=== PATIENT | female | born 1965 | race American Indian/Alaskan Native ===

== ENCOUNTER 2017-03-13 10:10 | Inpatient (IN) | payer OTHER ==
[2017-03-13 11:16] LABS: Bilirubin,Urine NEG (Negative); Blood,Urine NEG (Negative); Color,Urine Yellow (Yellow); Mucus,Urine 3+ /HPF; Nitrite,Urine NEG (Negative); Protein,Urine <15 mg/dL mg/dL (Negative); Urobilinogen,Urine < 2.0 mg/dL (<2.0)
[2017-03-13 11:28] LABS: Basophils % (Auto) 0.4 % (0.0-1.8); Eosinophils % (Auto) 0.7 % (0.0-4.3); Hematocrit 43.9 % (30.3-42.9); Hemoglobin 14.2 gm/dl (10.1-14.3); Lymphocytes # (Auto) 1.3 K/mm3 (1.2-5.4); Lymphocytes % (Auto) 27.7 % (13.4-35.0); Mean Corpuscular HGB Conc 32 % (30-34); Mean Corpuscular Hemoglobin 29 pg (28-32); Mean Corpuscular Volume 88 fl (79-97); Monocytes # (Auto) 0.5 K/mm3 (0.0-0.8); Platelet Count 204 K/mm3 (140-440); Red Blood Count 4.97 M/mm3 (3.65-5.03); Red Cell Distribution Width 14.9 % (13.2-15.2)
[2017-03-13 11:28] LABS: Amphetamine Screen,Urine PRESUMPTIVE NEGATIVE; Benzodiazepines Screen,Urine PRESUMPTIVE NEGATIVE; Cannabinoid Screen,Urine PRESUMPTIVE NEGATIVE; Cocaine Screen,Urine PRESUMPTIVE NEGATIVE; Methadone Screen,Urine PRESUMPTIVE NEGATIVE; Opiate Screen,Urine PRESUMPTIVE NEGATIVE
[2017-03-13] MEDS ORDERED: NACL 0.9% 1000 ML 1,000 ML IV ONE (11:28)
--- NOTE | 2017-03-13 11:29 | Emergency Department Report ---
ED General Adult HPI - General Chief complaint: Syncope Stated complaint: UNRESPONSIVE Time Seen by Provider: 03/13/17 11:17 Source: family, EMS (ems notes not available at time of chart dictation), RN notes reviewed Mode of arrival: Stretcher Limitations: Altered Mental Status - History of Present Illness Initial comments: This is a 51-year-old female who was previously unknown to this provider. Past medical history includes hypertension, depression, family does report that patient has a distant history of suicide attempt. Patient is accompanied by her daughter, sister, brother. As per verbal report from the patient's family, patient has been "depressed" for the past 4 months. They also indicate that the patient has been depressed about the holidays. They indicate the patient was walking and talking last night. Patient's daughter also indicates that the patient was walking and talking this morning. Patient's daughter further indicates the patient was "fine", and then "laid down on the floor." She specifically denies syncope, an explosive loss of consciousness. There is concern about overdose, as an empty bottle of Effexor was found. Patient's family indicates the patient gets her prescriptions from [facility] on local [address]. The patient is nonverbal, and she can therefore not describe exacerbating or relieving factors, or radiation. -: This morning Consistency: constant Improves with: none Worsens with: none Associated Symptoms: confusion - Related Data Home Medications Medication Instructions Recorded Confirmed Last Taken Venlafaxine HCl [Effexor Xr] 75 mg PO QDAY 03/13/17 03/13/17 Unknown Allergies Allergy/AdvReac Type Severity Reaction Status Date / Time No Known Allergies Allergy Verified 03/13/17 11:54 ED Review of Systems ROS: Stated complaint: UNRESPONSIVE Other details as noted in HPI Comment: Unobtainable due to pts medical conditions ED Past Medical Hx - Past Medical History Hx Hypertension: Yes - Social History Smoking Status: Never Smoker Substance Use Type: None - Medications Home Medications: Home Medications Medication Instructions Recorded Confirmed Last Taken Type Venlafaxine HCl [Effexor Xr] 75 mg PO QDAY 03/13/17 03/13/17 Unknown History ED Physical Exam - General Limitations: Altered Mental Status General appearance: in no apparent distress - Head Head exam: Present: atraumatic, normocephalic - Eye Eye exam: Present: PERRL, other (when the patient's eyelids are elevated, the patient appears to close them tightly. When eyelids are open, eyes noted to be moving in all directions. There is no nystagmus.) - ENT ENT exam: Present: normal exam, TM's normal bilaterally, normal external ear exam, other (there is no stridor or dysphonia) - Neck Neck exam: Present: normal inspection. Absent: tenderness, meningismus - Respiratory Respiratory exam: Present: normal lung sounds bilaterally. Absent: respiratory distress - Cardiovascular Cardiovascular Exam: Present: regular rate, normal rhythm, normal heart sounds. Absent: bradycardia, tachycardia, irregular rhythm, systolic murmur, diastolic murmur, rubs, gallop - GI/Abdominal GI/Abdominal exam: Present: soft, normal bowel sounds. Absent: distended, tenderness, guarding, rebound, rigid, pulsatile mass - Rectal Rectal exam: Present: normal inspection, normal rectal tone, other (no gross blood on rectal examination, escorted by nurse Jese) - External exam: Present: normal external exam, other (escorted by nurse Jese during external exam) - Extremities Exam Extremities exam: Present: normal inspection, normal capillary refill. Absent: tenderness, pedal edema, joint swelling, calf tenderness - Back Exam Back exam: Present: normal inspection. Absent: tenderness, CVA tenderness (R), paraspinal tenderness, vertebral tenderness - Neurological Exam Neurological exam: Present: altered, other (the patient is nonverbal. Patient grimaces in response to sternal stimuli. Prior to my arrival, patient heard yelling from the room. Patient is closing her eyes when we attempt to examine him. She is not speaking. Unable to assess lites touch, proprioception, or cranial nerves except as documented.) - Psychiatric Psychiatric exam: Present: other (the patient is nonverbal) - Skin Skin exam: Present: warm, dry, intact, normal color. Absent: rash ED Course Vital Signs 03/13/17 03/13/17 03/13/17 10:12 10:46 10:51 Temperature 98.8 F Pulse Rate 82 76 87 Respiratory 18 Rate Blood Pressure 171/87 171/87 O2 Sat by Pulse 100 100 100 Oximetry 03/13/17 03/13/17 03/13/17 11:00 11:16 11:30 Temperature Pulse Rate 88 88 82 Respiratory 23 23 20 Rate Blood Pressure 172/92 170/93 170/93 O2 Sat by Pulse 100 100 100 Oximetry 03/13/17 03/13/17 03/13/17 11:46 12:00 12:16 Temperature Pulse Rate 80 77 81 Respiratory 19 18 21 Rate Blood Pressure 154/86 154/86 159/82 O2 Sat by Pulse 100 100 100 Oximetry 03/13/17 03/13/17 03/13/17 12:30 12:46 14:27 Temperature Pulse Rate 91 H Respiratory 13 12 17 Rate Blood Pressure 159/82 172/91 172/91 O2 Sat by Pulse 100 98 100 Oximetry 03/13/17 03/13/17 03/13/17 14:30 14:45 15:00 Temperature Pulse Rate 63 67 66 Respiratory 13 14 15 Rate Blood Pressure 150/85 150/85 150/81 O2 Sat by Pulse 100 100 100 Oximetry 03/13/17 03/13/17 03/13/17 15:15 15:30 16:01 Temperature Pulse Rate 63 66 64 Respiratory 13 19 16 Rate Blood Pressure 153/92 151/71 159/128 O2 Sat by Pulse 100 100 100 Oximetry 03/13/17 03/13/17 16:30 17:00 Temperature Pulse Rate 63 64 Respiratory 16 15 Rate Blood Pressure 164/84 152/80 O2 Sat by Pulse 99 99 Oximetry - Reevaluation(s) Reevaluation #1: 03/13/17 11:39 Differential diagnosis, including not limited to: Stroke, bleed, conversion disorder, seizure, electrolyte derangement, pneumonia, urinary tract infection, catatonia, overdose Assessment and plan: 51-year-old female with undifferentiated altered mental status, extensive psychiatric history, highly favor psychiatric etiology. However, we will obtain CT scan of the brain, CT scan of the head and neck with contrast to exclude posterior circulation thrombosis. Based on history, I favor overdose with possible conversion disorder, the patient currently currently has a GCS of 3 but is protecting her airway, saturating well with no stridor or dysphonia, and does not require intubation. The family has given verbal consent for CT scan with IV contrast after risks, benefits, alternatives were discussed. She is placed on a 1013. Serum toxicology studies, EKG pending. Nursing staff is going to contact the patient' s pharmacy in an attempt to obtain a full medication list. Nursing staff will then contact [place] [facility] to obtain recommendations. If and when the patient overdosed is unknown, and given her current GCS she is not a candidate For charcoal therapy. We will also obtain x-ray of the chest, abdomen, pelvis to exclude bezoar Reevaluation #2: 03/13/17 11:45 Case discussed with consulting neurology, Dr. Joel Odell, and he agrees. He also agrees with the current plan. I will contact him once angiogram has resulted. Of note, patient heard to be yelling outside her room prior to my personal evaluation. Reevaluation #3: 03/13/17 12:24 Nursing staff has contacted patient's pharmacy, only prescription she is currently on is Effexor. Of note, patient had a prescription filled for 90 tablets on February 26, vital is now empty. Nursing staff has also contacted the [facility] Control [facility], recommendations are as follows: Call placed to [place] poison control. Updated on pt condition. Recommendations to monitor for at least 12 hours. If QRS is prolonged >110 consider bicarb treatment. Monitor for serotonin syndrone (Hyperthermia, Hyper-reflexia, seizures). MD made aware. Patient does not have hyperreflexia, there is no clonus, there is no hypothermia. 03/13/17 12:25 Reevaluation #4: 03/13/17 12:46 I am informed by nursing staff that patient is now talking. I am further informed by nursing staff that the pharmacy contacted us again, and amended the Effexor prescription, and indicated that the patient only got 5 tablets, and not 90. Collateral information is obtained by speaking to prescribing pharmacist, Caitlin Bucio he is quite certain that the patient was dispensed only 5 tablets and not 85 tablets. The patient is quite sure that she is not homicidal or suicidal and has tried to overdose on anything. I have also recontacted the consulting neurologist, Dr. Odell, and informed him that the patient is now awake, alert, lucid, oriented, has a GCS of 15, with an NIH score of 0. We will still proceed with the CT scan of the head and neck, and the medical recommendation would still be the same, to admit patient to the hospital for TIA/arrhythmia workup. This was described and discussed with the patient's family, mother and patient all of whom verbalize understanding. ; 03/13/17 13:17 Reevaluation #5: 03/13/17 13:34 Patient continues to be awake, alert, oriented and conversant. She is adamant that she is not homicidal or suicidal, and she is adamant that she does not try to overdose on anything. Objective toxicology studies are negative and unremarkable. Based on this information, she does not meet criteria for 1013 or involuntary hold. Therefore , 1013 is discontinued. Patient is also seen in consultation with the crisis team, who independently agrees. - Consultations Consultation #1: 03/13/17 14:15 CT scan of the brain is negative. CT angiogram head and neck negative. Neurologic examination remains unremarkable and unchanged. Patient complaining mild headache. Ketorolac is ordered. Hospital physician is paced to arrange admission. Dr. Ortiz, the hospital physician, accepted the patient to the medical service. 03/13/17 15:07 ED Medical Decision Making - Lab Data Result diagrams: 03/13/17 11:02 03/13/17 11:02 Vital Signs 03/13/17 03/13/17 10:12 10:51 Temperature 98.8 F Pulse Rate 82 87 Blood Pressure 171/87 O2 Sat by Pulse 100 100 Oximetry Lab Results 03/13/17 03/13/17 03/13/17 Range/Units 10:44 10:44 11:02 WBC 4.6 (4.5-11.0) K/mm3 RBC 4.97 (3.65-5.03) M/mm3 Hgb 14.2 (10.1-14.3) gm/dl Hct 43.9 H (30.3-42.9) % MCV 88 (79-97) fl MCH 29 (28-32) pg MCHC 32 (30-34) % RDW 14.9 (13.2-15.2) % Plt Count 204 (140-440) K/mm3 Lymph % (Auto) 27.7 (13.4-35.0) % Hall % (Auto) 10.0 H (0.0-7.3) % Eos % (Auto) 0.7 (0.0-4.3) % Baso % (Auto) 0.4 (0.0-1.8) % Lymph # 1.3 (1.2-5.4) K/mm3 Hall # 0.5 (0.0-0.8) K/mm3 Eos # 0.0 (0.0-0.4) K/mm3 Baso # 0.0 (0.0-0.1) K/mm3 Seg Neutrophils % 61.2 (40.0-70.0) % Seg Neutrophils # 2.8 (1.8-7.7) K/mm3 POC Glucose (70-105) Urine Color Yellow (Yellow) Urine Turbidity Clear (Clear) Urine pH 5.0 (5.0-7.0) Ur Specific [place] 1.023 (1.003-1.030) Urine Protein <15 mg/dl (Negative) mg/dL Urine Glucose (UA) Neg (Negative) mg/dL Urine Ketones Neg (Negative) mg/dL Urine Blood Neg (Negative) Urine Nitrite Neg (Negative) Urine Bilirubin Neg (Negative) Urine Urobilinogen < 2.0 (<2.0) mg/dL Ur Leukocyte Esterase Sm (Negative) Urine WBC (Auto) 1.0 (0.0-6.0) /HPF Urine RBC (Auto) 2.0 (0.0-6.0) /HPF U Epithel Cells (Auto) 2.0 (0-13.0) /HPF Urine Mucus 3+ /HPF Urine Opiates Screen Presumptive negative Urine Methadone Screen Presumptive negative Ur Barbiturates Screen Presumptive negative Ur Phencyclidine Scrn Presumptive negative Ur Amphetamines Screen Presumptive negative U Benzodiazepines Scrn Presumptive negative Urine Cocaine Screen Presumptive negative U Marijuana (THC) Screen Presumptive negative Drugs of Abuse Note Disclamer 03/13/17 Range/Units 11:07 WBC (4.5-11.0) K/mm3 RBC (3.65-5.03) M/mm3 Hgb (10.1-14.3) gm/dl Hct (30.3-42.9) % MCV (79-97) fl MCH (28-32) pg MCHC (30-34) % RDW (13.2-15.2) % Plt Count (140-440) K/mm3 Lymph % (Auto) (13.4-35.0) % Hall % (Auto) (0.0-7.3) % Eos % (Auto) (0.0-4.3) % Baso % (Auto) (0.0-1.8) % Lymph # (1.2-5.4) K/mm3 Hall # (0.0-0.8) K/mm3 Eos # (0.0-0.4) K/mm3 Baso # (0.0-0.1) K/mm3 Seg Neutrophils % (40.0-70.0) % Seg Neutrophils # (1.8-7.7) K/mm3 POC Glucose 72 (70-105) Urine Color (Yellow) Urine Turbidity (Clear) Urine pH (5.0-7.0) Ur Specific [place] (1.003-1.030) Urine Protein (Negative) mg/dL Urine Glucose (UA) (Negative) mg/dL Urine Ketones (Negative) mg/dL Urine Blood (Negative) Urine Nitrite (Negative) Urine Bilirubin (Negative) Urine Urobilinogen (<2.0) mg/dL Ur Leukocyte Esterase (Negative) Urine WBC (Auto) (0.0-6.0) /HPF Urine RBC (Auto) (0.0-6.0) /HPF U Epithel Cells (Auto) (0-13.0) /HPF Urine Mucus /HPF Urine Opiates Screen Urine Methadone Screen Ur Barbiturates Screen Ur Phencyclidine Scrn Ur Amphetamines Screen U Benzodiazepines Scrn Urine Cocaine Screen U Marijuana (THC) Screen Drugs of Abuse Note - EKG Data -: EKG Interpreted by Me EKG shows normal: sinus rhythm Rate: normal - Radiology Data Radiology results: image reviewed Critical care attestation.: If time is entered above; I have spent that time in minutes in the direct care of this critically ill patient, excluding procedure time. ED Disposition Clinical Impression: Unresponsive episode Disposition: DC-09 OP ADMIT IP TO THIS HOSP Is pt being admited?: Yes Does the pt Need Aspirin: Yes Condition: Stable Referrals: PRIMARY CARE, [Primary Care Provider] - 3-5 Days
[2017-03-13 11:42] LABS: Alanine Aminotransferase 11 units/L (7-56); Albumin 4.1 g/dL (3.9-5); BUN/Creatinine Ratio 15; Blood Urea Nitrogen 9 mg/dL (7-17); Calcium 9.3 mg/dL (8.4-10.2); Hemolysis Index 7
[2017-03-13] MEDS ORDERED: NACL ONE (12:19)
--- NOTE | 2017-03-13 12:19 | XRay Report ---
ABDOMINAL SERIES: History: pain. Erect chest film shows no acute or significant changes involving the heart or lung [place]. There is no evidence of free air beneath the diaphragms. The gas pattern within the abdomen is unremarkable. There is no evidence of bowel dilatation, significant air-fluid levels, or masses. Organ shadows are unremarkable. IMPRESSION: Abdominal series within normal limits.
--- NOTE | 2017-03-13 14:07 | Cat Scan Report ---
CT HEAD WITHOUT CONTRAST: HISTORY: Altered mental status. TECHNIQUE: Sequential 2.5mm CT images. COMPARISON: none. FINDINGS: Cerebral Parenchyma: Within normal limits. Cerebellum: Within normal limits. Brainstem: Within normal limits. Ventricles: Normal. Sella: Normal. Extra-axial spaces: Normal. Basal Cisterns: Normal. Intracranial Hemorrhage: None. Midline Shift: None. Calvarium: Normal. Sinuses: Normal. Mastoid Air Cells: Normal. Visualized Orbits: Normal. IMPRESSION: Cranial CT scan within normal limits.
--- NOTE | 2017-03-13 14:08 | Cat Scan Report ---
CTA NECK: HISTORY: Altered mental status, CVA.. TECHNIQUE: Helical CT following IV contrast. Sagittal and coronal reformatted images. 3D volume rendering technique. Stenosis was calculated using NASCET criteria. FINDINGS: The visualized aortic arch, innominate artery and proximal bilateral subclavian arteries are widely patent with less than 20% stenosis. Within the right carotid system: There is no evidence for significant atherosclerotic disease. There is less than 20% stenosis. Within the left carotid system: There is no evidence for significant atherosclerotic disease. There is less than 20% stenosis. The cervical vertebral arteries are patent with less than 20% stenosis. IMPRESSION: Unremarkable CTA of the neck.
--- NOTE | 2017-03-13 14:10 | Cat Scan Report ---
CTA HEAD: HISTORY: Altered mental status, CVA. TECHNIQUE: Helical CT images after IV contrast with 0.625mm reformations. Sagittal and coronal reformats. Rotational MIP images. 3D volume rendering technique. FINDINGS: The arterial structures of the anterior and posterior circulations are patent throughout. There is less than 20% stenosis throughout. No evidence for stenosis, occlusion or aneurysm. IMPRESSION: Unremarkable CTA head.
[2017-03-13] MEDS ORDERED: TORADOL IV ONE (14:19)
[2017-03-13] MEDS ORDERED: BABY ASPIRIN PO ONE (14:20)
--- NOTE | 2017-03-13 16:01 | History and Physical Report ---
History of Present Illness Chief complaint: I passed out History of present illness: 51 YO Female with HTN, Obesity, Major Depression with Suicide Attempt presents to ED for evaluation. Pt states that she was in her usual state of health until this morning. Pt states that she was find and subsequently loss consciousness, and regained consciousness upon arriving to the hospital. Pt family raise concern for attempted overdose, due to an empty effexor pill bottle that was found near the patient. Pt denies SI/HI or plan. No reports of fever, chills, CP , Palpitations, loss of bowel/bladder continence, leg swelling, calf pain, prolonged immobility/travel, individual/family history of DVT/PE. Pt seen and evaluated in ED and admitted for unconscious state, and Major depression. Teleneurology consulted in ED and recommended MRI/MRA, Echo. Past History Past Medical History: hypertension, other (obesity, depression) Past Surgical History: No surgical history, Other (reviewed) Social history: , lives with family. denies: smoking, alcohol abuse, prescription drug abuse Family history: hypertension Medications and Allergies Allergies Allergy/AdvReac Type Severity Reaction Status Date / Time No Known Allergies Allergy Verified 03/13/17 11:54 Home Medications Medication Instructions Recorded Confirmed Last Taken Type Venlafaxine HCl [Effexor Xr] 75 mg PO QDAY 03/13/17 03/13/17 Unknown History Review of Systems Constitutional: no weight loss, no weight gain, no fever, no chills Ears, nose, mouth and throat: no ear pain, no ear discharge, no tinnitis, no decreased hearing Breasts: no change in shape, no swelling, no mass Cardiovascular: syncope, no chest pain, no orthopnea, no palpitations, no rapid/ irregular heart beat, no edema Respiratory: no cough, no cough with sputum, no excessive sputum, no hemoptysis , no shortness of breath Gastrointestinal: no abdominal pain, no nausea, no vomiting, no diarrhea, no constipation Genitourinary Female: no dysmenorrhea, no pelvic pain, no flank pain, no menorrhagia, no dysuria, no urinary frequency Rectal: no pain, no incontinence, no bleeding Musculoskeletal: no neck stiffness, no neck pain, no shooting arm pain, no arm numbness/tingling, no low back pain, no shooting leg pain, no leg numbness/ tingling Integumentary: no rash, no pruritis, no redness, no sores, no wounds Neurological: no transient paralysis, no paralysis, no weakness, no parathesias , no numbness, no tingling, no seizures, no syncope, no convulsions, no change in speech Psychiatric: anxiety, depression, no memory loss, no change in sleep habits, no sleep disturbances Endocrine: no cold intolerance, no heat intolerance, no polyphagia, no excessive thirst, no polydipsia Hematologic/Lymphatic: no easy bruising, no easy bleeding Allergic/Immunologic: no urticaria, no allergic rhinitis, no wheezing Exam - Constitutional Vitals: Temp Pulse Resp BP Pulse Ox 98.8 F 66 19 151/71 100 03/13/17 10:51 03/13/17 15:30 03/13/17 15:30 03/13/17 15:30 03/13/17 15:30 General appearance: Present: no acute distress, well-nourished - EENT Eyes: Present: PERRL ENT: hearing intact, clear oral mucosa - Neck Neck: Present: supple, normal ROM - Respiratory Respiratory effort: normal Respiratory: bilateral: CTA - Cardiovascular Heart Sounds: Present: S1 & S2. Absent: rub, click - Extremities Extremities: pulses symmetrical, No edema Peripheral Pulses: within normal limits - Abdominal General gastrointestinal: Present: soft, non-tender, non-distended, normal bowel sounds Female genitourinary: Present: normal - Integumentary Integumentary: Present: clear, warm, dry - Musculoskeletal Musculoskeletal: gait normal, strength equal bilaterally - Psychiatric Psychiatric: appropriate mood/affect, intact judgment & insight - Neurologic Neurologic: CNII-XII intact, moves all extremities Results - Labs CBC & Chem 7: 03/13/17 11:02 03/13/17 11:02 Labs: Abnormal lab results 03/13/17 03/13/17 03/13/17 Range/Units 11:02 11:02 11:15 Hct 43.9 H (30.3-42.9) % [place] % (Auto) 10.0 H (0.0-7.3) % Creatinine 0.6 L (0.7-1.2) mg/dL Salicylates < 0.3 L (2.8-20.0) mg/dL Assessment and Plan - Patient Problems (1) Unconscious state Current Visit: Yes Status: Acute Plan to address problem: Teleneurology consulted: MRI/MRA, Echo, Carotid doppler, neuro checks, (2) Accelerated hypertension Current Visit: Yes Status: Acute Plan to address problem: monitor bp q shift, continue medical management, IV hydralazine for systolic above 155. (3) Obesity Current Visit: Yes Status: Acute Qualifiers: Body mass index: BMI 38.0-38.9 Plan to address problem: balanced diet, increased physical activity, (4) DVT prophylaxis Current Visit: Yes Status: Acute
[2017-03-13] MEDS ORDERED: TYLENOL PO PRN ×2 (18:50)
[2017-03-13] MEDS ORDERED: SODIUM CHLORIDE FLUSH SYRINGE 10 ML IV PRN (18:50)
[2017-03-13] MEDS ORDERED: ZOFRAN IV PRN ×2 (18:50)
[2017-03-13] MEDS ORDERED: PROVENTIL IH PRN (18:50)
[2017-03-13] MEDS ORDERED: PHENERGAN PR PRN (18:50)
[2017-03-14 04:41] LABS: Chol/HDL Ratio 2.83 %
[2017-03-14 07:43] VITALS: BP 158/86
[2017-03-14] MEDS ORDERED: EFFEXOR XR PO SCH (10:00)
--- NOTE | 2017-03-14 11:52 | Magnetic Resonance Report ---
MRI of the brain without contrast. History: Stroke. Procedure: Routine brain protocol. Findings: The posterior fossa is normal. The ventricles are normal in size and contour. There is no restricted diffusion. The rojas-white matter junction is normal. There are no masses or extra-axial collections. The pituitary gland is normal. The visualized extracranial structures are normal. Impression: Negative study.
--- NOTE | 2017-03-14 11:53 | Magnetic Resonance Report ---
MRA of the lummi of [place]. History: Stroke. Procedure: 3-D [id number] technique. Findings: There are no significant stenoses within the major cranial vessels. There is no evidence of aneurysm or AVM. The posterior circulation is unremarkable. Impression: Normal study.
--- NOTE | 2017-03-14 13:23 | Consultation ---
History of Present Illness Consult date: 03/14/17 History of present illness: went over the MRI / MRA these are normal and the ECHO this is really unremarkable suspect TIA she can be discharged I will follow up in the office reviewed the ED notes extensively Past History Past Medical History: hypertension, other (obesity, depression) Past Surgical History: No surgical history, Other (reviewed) Social history: , lives with family. denies: smoking, alcohol abuse, prescription drug abuse Family history: hypertension Medications and Allergies Allergies Allergy/AdvReac Type Severity Reaction Status Date / Time No Known Allergies Allergy Verified 03/13/17 11:54 Home Medications Medication Instructions Recorded Confirmed Last Taken Type Venlafaxine HCl [Effexor Xr] 75 mg PO QDAY 03/13/17 03/13/17 Unknown History Active Meds: Active Medications Acetaminophen (Tylenol) 650 mg PO Q4H PRN PRN Reason: Pain MILD(1-3)/Fever >100.5/ALLEN Acetaminophen (Tylenol) 650 mg PO Q4H PRN PRN Reason: Pain, Mild (1-3) Albuterol (Proventil) 2.5 mg IH Q4HRT PRN PRN Reason: Shortness Of Breath Ondansetron HCl (Zofran) 4 mg IV Q8H PRN PRN Reason: N/V unrelieved by Reglan Ondansetron HCl (Zofran) 4 mg IV Q8H PRN PRN Reason: N/V unrelieved by Reglan Promethazine HCl (Phenergan) 25 mg MA Q6H PRN PRN Reason: Nausea And Vomiting Sodium Chloride (Sodium Chloride Flush Syringe 10 Ml) 10 ml IV PRN PRN PRN Reason: LINE FLUSH Physical Examination - Vital Signs Vital Signs: Vital Signs Pulse Pulse Ox 82 100 03/13/17 10:12 03/13/17 10:12 Results - Laboratory Findings CBC and BMP: 03/13/17 11:02 03/13/17 11:02 Abnormal Lab Findings: Abnormal Labs 03/13/17 03/13/17 03/13/17 11:02 11:02 11:15 Hct 43.9 H [place] % (Auto) 10.0 H Creatinine 0.6 L Salicylates < 0.3 L
--- NOTE | 2017-03-14 14:35 | Discharge Summary ---
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 Notified:: awaiting call back 03/13/17 18:50 Occupational Therapy Evaluate and Treat [CONS] Routine Comment: Reason For Exam: Neuro deficits Physical Therapy Evaluation and Treat [CONS] Routine Comment: Reason For Exam: Neuro deficits 03/14/17 08:35 Consult to Physician [CONS] Routine Consulting Provider: BLAYNE MIMS Reason For Exam: Syncope Place consult to:: neurology Notified:: yes Phone number called:: [phone] If yes, spoke with:: michel Time called:: 09:32 Primary care physician: MANAGER GARAGE Hospitalization Condition: Stable Pertinent studies: CTA of head and neck were unremarkable. Head MRA and brain MRI were negative. Echocardiogram showed EF of 55-60%. Carotid Doppler showed less than 50% stenosis bilaterally. Hospital course: 51 YO Female with HTN, Obesity, Major Depression with Suicide Attempt presents to ED for evaluation. Pt states that she was in her usual state of health until this morning. Pt states that she was find and subsequently loss consciousness, and regained consciousness upon arriving to the hospital. Pt family raise concern for attempted overdose, due to an empty effexor pill bottle that was found near the patient. Pt denies SI/HI or plan. No reports of fever, chills, CP , Palpitations, loss of bowel/bladder continence, leg swelling, calf pain, prolonged immobility/travel, individual/family history of DVT/PE. Pt seen and evaluated in ED and admitted for unconscious state, and Major depression. Teleneurology consulted in ED and recommended MRI/MRA, Echo. Patient was treated with IV fluids, antihypertensives and analgesics. Discharge diagnosis Unconscious state Accelerated hypertension Obesity DVT prophylaxis Disposition: - TO HOME OR SELFCARE Time spent for discharge: 32 mins Core Measure Documentation - Palliative Care Palliative Care/ Comfort Measures: Not Applicable - Core Measures Any of the following diagnoses?: none Exam - Constitutional Vitals: Temp Pulse Resp BP Pulse Ox 98.7 F 68 16 158/86 100 03/14/17 07:41 03/14/17 07:41 03/14/17 07:41 03/14/17 07:41 03/14/17 10:47 General appearance: Present: no acute distress, well-nourished - EENT Eyes: Present: PERRL ENT: hearing intact, clear oral mucosa - Neck Neck: Present: supple, normal ROM - Respiratory Respiratory effort: normal Respiratory: bilateral: CTA - Cardiovascular Heart Sounds: Present: S1 & S2. Absent: rub, click - Extremities Extremities: pulses symmetrical, No edema Peripheral Pulses: within normal limits - Abdominal General gastrointestinal: Present: soft, non-tender, non-distended, normal bowel sounds Female genitourinary: Present: deferred - Rectal Rectal Exam: deferred - Integumentary Integumentary: Present: clear, warm, dry - Musculoskeletal Musculoskeletal: gait normal, strength equal bilaterally - Psychiatric Psychiatric: appropriate mood/affect, intact judgment & insight - Neurologic Neurologic: CNII-XII intact, moves all extremities - Allied Health Allied health notes reviewed: nursing Plan Activity: advance as tolerated, fall precautions Weight Bearing Status: Weight Bear as Tolerated Diet: low fat, low cholesterol Follow up with: PRIMARY CAREMD [Primary Care Provider] - 3-5 Days Forms: AMA Form Prescriptions: amLODIPine [Norvasc] 10 mg PO DAILY #30 tab <FLASH WEIR - Last Filed: 03/17/17 18:03> Providers - Providers Date of Admission: 03/13/17 18:50 Attending physician: FLASH WEIR MD 03/13/17 11:28 Consult to Mental Health [CONS] Urgent Reason For Exam: psych Place consult to:: fitter hand ski production supervisor Notified:: awaiting call back 03/13/17 18:50 Occupational Therapy Evaluate and Treat [CONS] Routine Comment: Reason For Exam: Neuro deficits Physical Therapy Evaluation and Treat [CONS] Routine Comment: Reason For Exam: Neuro deficits 03/14/17 08:35 Consult to Physician [CONS] Routine Consulting Provider: BLAYNE MIMS Reason For Exam: Syncope Place consult to:: neurology Notified:: yes Phone number called:: [phone] If yes, spoke with:: michel Time called:: 09:32 Primary care physician: MANAGER GARAGE Hospitalization Hospital course: Patient denied and any sucidal attempt. patient said she will not take any ppsych medications. patient was alert and oriented. reasonable thought processes. patient advised to have follow up with PCP Core Measure Documentation - Palliative Care Palliative Care/ Comfort Measures: Not Applicable - Core Measures Any of the following diagnoses?: none Exam - Constitutional Vitals: Temp Pulse Resp BP Pulse Ox 98.7 F 68 16 158/86 100 03/14/17 07:41 03/14/17 07:41 03/14/17 07:41 03/14/17 07:41 03/14/17 10:47
--- NOTE | 2017-03-15 00:50 | Consultation ---
HISTORY OF PRESENT ILLNESS: This 51-year-old black female who has been seen for neurological assessment. This patient is post-syncopal episode. She apparently was at her home and as she recalls the events, now is able to tell me that she was talking with someone that was making her highly agitated and upset. She lost emotional control, passed out, some seems to have a good recollection for what happened now. I have reviewed her testing, her MRA, MRI, her echo. She does have slightly elevated blood pressure, which will be addressed with the hospitalist. The detailed interview with her, she is obviously not depressed, is not confused and not psychotic. She had maybe at best taken for Effexor. We know she did not take more than that and there was no suicidal ideation, no attempt to harm herself. She feels well at the present time and plans to follow up with her primary care doctor, Dr. Bucio at the [facility]. Our recommendation at this point, she cannot be discharged. I think this represented probably what is referred to as a fugue attack, which is a type of vasovagal syncope induced by emotionally charged content. I do not think that strictly speaking this was a reaction to the Effexor, although occasionally, Effexor can elicit hypertension. I doubt that this was evident in this case. One might have called this a TIA and with complete resolution, she clearly did not have a stroke. She does not have MS. She has no underlying neurological disease, is associated with this. I did corporate counselor the patient about cognitive behavioral technique of dealing with emotions and hopefully, she will make use of this therapy technique in the future as it can be accessed through the media and I encouraged her to not have situations like this occur in the future. JOB# [id number] NEGRITA/DIVINA
--- NOTE | 2017-03-16 17:49 | Vascular Lab Report ---
CAROTID DUPLEX STUDY: RIGHT PSVEDV CCA PROX:[id number] CCA DIST:[id number] ICA PROX:9031 ICA MID:[id number] ICA DIST:9637 ECA: [id number] VERT: 84 31 LEFT PSVEDV CCA PROX:[id number] CCA DIST:[id number] ICA PROX:9528 ICA MID:[id number] ICA DIST:[id number] ECA: [id number] VERT: 73 23 REASON FOR EXAM: Stroke. COMMENTS ON THE RIGHT: Doppler frequency analysis is consistent with 16 to 49 percent diameter reduction of the internal carotid artery. Minimal amount of plaque is seen. The common carotid artery is patent. The external carotid artery is patent. The vertebral artery has antegrade flow. COMMENTS ON THE LEFT: Doppler frequency analysis is consistent with 16 to 49 percent diameter reduction of the internal carotid artery. Minimal amount of plaque is seen. The common carotid artery is patent. The external carotid artery is patent. The vertebral artery has antegrade flow. IMPRESSION: Less than 50% diameter reduction in the internal carotid arteries bilaterally.
== END 2017-03-14 15:15 | disposition home or self-care (01) | DRG 312 ==
LOC: ED 10:10 → 3A 18:50
PROVIDERS: ADMIT Internal Medicine; ATTEND Internal Medicine
DX: R55 Syncope and collapse (principal); E66.9 Obesity, unspecified; Z68.33 Body mass index [BMI] 33.0-33.9, adult; Z71.3 Dietary counseling and surveillance; I10 Essential (primary) hypertension; F32.9 Major depressive disorder, single episode, unspecified; Z79.899 Other long term (current) drug therapy; Z82.49 Family history of ischemic heart disease and other diseases of the circulatory system
CPT/HCPCS: 36415; 70450; 70496; 70498; 70544; 70551; 74022; 80048; 80053; 80061; 80307; 80320; 81001; 81025; 82550; 82962; 85025; 85379; 93005; 93010; 93306; 93880; 96361; 96374; G0480; J1885; Q9967